=== PATIENT | female | born 1955 | race Caucasian/White ===

== ENCOUNTER → 2017-04-26 | Day surgery (SDC) | payer OTHER ==
[~2017-04-26] VITALS: Ht 167.6 cm; Wt 77.3 kg
[~2017-04-26] MED LIST: B12-1CHW CHEW; BUPIVACAINE HCL PF 0.25% 30 ML VIAL ONE; BUPIVACAINE HCL PF 0.5% 30 ML VIAL ONE; BUPIVACAINE/EPINEPHRINE 0.5% PF 10 ML VIAL ONE; CIPR-9 PO; CIPROFLOXACIN/DEXT 400 MG/200 ML IV PRN; CITA20TA4 PO; D31000TA; FAMOTIDINE 20 MG/2 ML VIAL ONE; FURO20TA PO; HYDR-3288 PO; LACTATED RINGER'S 1000 ML INJ 1,000 ML ONE; LIDOCAINE HCL 2% 50 ML VIAL ONE; LOSA50TA PO; MIDAZOLAM HCL 2 MG/2 ML VIAL ONE; NEOMYCIN/POLYMYXIN 1 ML G.U. IRRIGANT ONE; PROPOFOL 200 MG/20 ML AMP IV ONE; PYRI1TAB5; SLEE25TA; TRIAMCINOLONE ACETONIDE 40 MG/ML VIAL ONE; [UNRECOGNIZED DRUG - OTHER] PO
[2017-04-26 12:05] VITALS: TEMP 97.5
[2017-04-26 12:55] VITALS: BP 118/63; PULSE 54; RESP 16; O2SAT 99
--- NOTE | 2017-04-26 13:11 | MP ---
cc: MG JOY III, M.D. DATE OF SURGERY: 04/26/2017 PREOPERATIVE DIAGNOSIS 1. Right carpal tunnel syndrome. 2. Right third trigger finger. 3. Right fourth trigger finger. PROCEDURE 1. Right open carpal tunnel release. 2. Right third A1 reji release. 3. Right fourth A1 reji release. SURGEON Mg Joy III, MD PROCEDURE The patient was brought to the operating room and placed supine on the operating table. After the correct site and side of surgery were verified by members of each team in the room multiple times including the patient, myself and after adequate preoperative markings and preoperative written consent were verified by everyone and after adequate preoperative time-out was performed to everyone's satisfaction, after adequate IV sedation had been achieved, the right upper extremity was prepped and draped in traditional sterile surgical fashion. A 50/50 mixture of 2% plain lidocaine, 0.5% plain Marcaine was infiltrated in the skin and subcutaneous tissue into the carpal tunnel at the base of the palm and overlying the third and fourth A1 reji. The limb was exsanguinated with an Balbir wrap, highly placed well-padded axillary tourniquet was inflated to 200 mmHg for total of 20 minutes. A longitudinally oriented incision within the skin creases at the base of the palm was made and carried down through skin and subcutaneous tissue. Blunt dissection was performed. The palmar fascia was retracted opposite directions. The transverse carpal ligament was identified and divided in its midline from its proximal most to its distal-most extents completely freeing the carpal tunnel contents. They were all intact and actually well-vascularized. There was no other anatomic abnormality and there was no mass effect. There were no other abnormalities identified. Thorough irrigation with saline was performed. The skin edges were reapproximated using running and interrupted 4-0 Nylon suture. A transverse incision was made in the distal palmar flexion crease between the third and fourth A1 pulleys. Blunt dissection was performed. Bipolar electrocautery was used as needed. The third A1 reji was identified and divided in its midline from its proximal most to its distal-most extents. It was found to be very long and redundant and thick. Exploration proximally revealed some bands of crossing tissue and these were divided as well. There were no other anatomic abnormalities and the flexor tendons were intact and otherwise non-compromised. The identical procedure was then performed for the fourth A1 reji which was divided as well. Thorough irrigation was performed with saline. The skin edges were reapproximated using running 4-0 Nylon suture. The hand and arm were thoroughly cleansed and dried. Betadine, Adaptic dressings were applied on top of the wound followed by a bulky dressing. The axillary tourniquet was released and the hand and all the fingers became immediately soft, pink and warm and had brisk capillary refill of less than 2 seconds. There was no hematoma formation. Capillary refill is less than 2 seconds in all fingertips. The patient tolerated the procedure well. MD RALPH Cortez III/NIKKY /12:11 PM /12:57 PM
--- NOTE | 2017-04-27 23:46 | EKG ---
Date Performed: 04/26/2017 Time Performed: 10:10:18 PTAGE: 61 years EKG: Sinus rhythm NORMAL ECG NO PREVIOUS TRACING DOCTOR: Darion Paez Interpretating Date/Time 04/27/2017 23:44:44
== END | disposition home or self-care (01) ==
LOC: PHSDC 09:23
PROVIDERS: ATTEND Orthopaedic Surgery Hand Surgery
DX: G56.01 Carpal tunnel syndrome, right upper limb (principal); M65.331 Trigger finger, right middle finger; M65.341 Trigger finger, right ring finger; I10 Essential (primary) hypertension
CPT/HCPCS: 01810; 26055; 64721; 93005; J0744; J2250; J3010; J3301; J7120

== ENCOUNTER → 2017-05-24 | Day surgery (SDC) | payer OTHER ==
[~2017-05-24] VITALS: Ht 167.6 cm; Wt 86.5 kg
[~2017-05-24] MED LIST changes: -B12-1CHW CHEW; -BUPIVACAINE HCL PF 0.25% 30 ML VIAL ONE; -BUPIVACAINE/EPINEPHRINE 0.5% PF 10 ML VIAL ONE; +CHLORHEXIDINE GLUCONATE 2 % 1 PACK (2 CLOTHS) TOPICAL PRN; -CIPR-9 PO; +CIPR250T52 PO; +LACTATED RINGER'S 1000 ML INJ 1,000 ML IV ONE; -LACTATED RINGER'S 1000 ML INJ 1,000 ML ONE; +LACTATED RINGER'S 1000 ML IV PRN; +METOPROLOL TARTRATE 25 MG TAB PO PRN; +POVIDONE IODINE 5% (ANTISEPSIS KIT) 4 APPLICATIONS EACH NARE PRN; -PYRI1TAB5; +SODIUM CHLORID 0.9% 500 ML IV PRN; -TRIAMCINOLONE ACETONIDE 40 MG/ML VIAL ONE; +VITA100T10
--- NOTE | 2017-05-24 10:50 | MP ---
cc: MG JOY III, M.D. DATE OF SURGERY: 05/24/2017 PREOPERATIVE DIAGNOSIS 1. Left carpal tunnel syndrome. 2. Left fifth finger mass. PROCEDURE 1. Left open carpal tunnel release. 2. Left fifth finger mass excisional biopsy. SURGEON Mg Joy III, MD PROCEDURE The patient was brought to the operating room and placed supine on the operating table. After the correct site and side of surgery were verified by members of each team in the room multiple times including the patient and myself and after adequate preoperative markings and preoperative written consent were verified by everyone, after adequate preoperative time-out was performed to everyone's satisfaction, after adequate IV sedation was achieved, the left upper extremity was prepped and draped in the traditional sterile surgical fashion. A 50/50 mixture of 2% plain lidocaine, 0.5% plain Marcaine was infiltrated in the skin and subcutaneous tissue into the carpal tunnel and into the dorsal aspect of the finger proximally. The limb was exsanguinated with an Balbir wrap and highly placed well-padded axillary tourniquet was inflated to 200 mmHg for total of 16 minutes. A longitudinally oriented incision within the skin crease in the base of palm was made and carried down through skin and subcutaneous tissue. Bipolar electrocautery was used as needed. Blunt dissection was performed. The palmar fascia was retracted in opposite direction. The transverse carpal ligament was identified by its midline from its proximal most to distal-most extents, completely freeing the carpal tunnel contents. They are found to be intact and otherwise non-compromised and had hypertrophic tenosynovium. There is no evidence of any mass effect. There were no other anatomic abnormalities. Thorough irrigation with saline was performed. The skin edges reapproximated using running 4-0 Nylon sutures. The hand was placed palm down. A 1 cm incision was made dorsally in the skin crease over the fifth finger mass and carried down through skin and subcutaneous tissue. Blunt dissection was performed. Bipolar was used as needed. A firm, cystic mass with a clear-jelly contents was identified and dissected free in its entirety and passed off the field as a specimen. There was no evidence of any injury or erosion to the extensor tendon. There was no entry into the joint anywhere. The tissues were lightly abraded to try to prevent recurrence. Thorough irrigation was performed again. The skin edges were reapproximated using running 5-0 Nylon suture. The hand and arm were thoroughly cleansed and dried. Betadine, Adaptic dressing was applied on top of the wounds, bulky soft dressing was applied in the usual fashion with a circumferential Balbir wrap. The axillary tourniquet was released. The hand and all the fingers became immediately soft, pink, and warm and had brisk capillary refill of less than 2 seconds. The patient was awakened from anesthesia and transported to the Post Anesthesia Care Unit awake and in stable condition. MD RALPH Cortez III/NIKKY /10:23 AM /10:34 AM
[2017-05-24 11:00] VITALS: BP 123/45; PULSE 66; RESP 16; TEMP 97.4; O2SAT 100
== END | disposition home or self-care (01) ==
LOC: PHSDC 07:05
PROVIDERS: ATTEND Orthopaedic Surgery Hand Surgery
DX: G56.02 Carpal tunnel syndrome, left upper limb (principal); M67.442 Ganglion, left hand; I10 Essential (primary) hypertension
CPT/HCPCS: 01810; 26160; 64721; 88304; J0744; J2250; J7120; 88305